=== PATIENT | female | born 1960 | race Caucasian/White ===

== ENCOUNTER 2024-01-17 04:08 | Inpatient (IN) | payer OTHER, SELFPAY ==
[2024-01-17] VITALS (38 sets, daily range): BP systolic 100–204; BP diastolic 48–154
[2024-01-17 01:28] LABS: % Basophils 0.6 % (0-2); % Eosinophils 2.6 % (0-6); % Immature Granulocytes 0.2 % (0-0.5); % Lymphocytes 28.7 % (20.5-51.1); % Monocytes 7.1 % (1.7-9.3); % Neutrophils 60.8 % (42.2-75.2); Absolute Eosinophils 0.2 10^3/uL (0-0.7); Absolute Lymphocytes 1.8 10^3/uL (1.2-3.4); Absolute Monocytes 0.4 10^3/uL (0.1-0.6); Absolute Neutrophils 3.7 10^3/uL (1.4-6.5); Hematocrit 35.2 % (37.0-47.0); Hemoglobin 12.2 g/dL (12.0-16.0); Mean Corp Hgb Conc. 34.7 g/dL (33.0-37.0); Mean Corpuscular Hgb 33.4 pg (27.0-31.0); Mean Corpuscular Volume 96.4 fL (81.0-99.0); Mean Platelet Volume 9.1 fL (7.4-10.4); Nucleated Red Blood Cells % 0 %; Platelet Count 205 10^3/uL (130-400); Red Blood Cell Count 3.65 10^6/uL (4.20-5.40); Red Cell Dist. Width 12.4 % (11.5-14.5); White Blood Cell Count 6.2 10^3/uL (4.8-10.8)
--- NOTE | 2024-01-17 01:33 | ED.GENMED ---
History of Present Illness
<STEFFANY Harvey - Last Filed: 01/17/24 03:45>
General
Chief Complaint: Breathing Problem
Source: patient and significant other (boyfriend )
Time Seen by Provider: 01/17/24 01:22
Nursing documentation reviewed up to this point in time: agreed with
Travel History
Have you traveled to any high risk areas for coronavirus over the past 14 days?: No
History of Present Illness
History of Present Illness:
A 63-year-old female with a past medical history of bicuspid aortic valve replacement, hemorrhagic CVA, hypertension, GERD, anxiety, asthma presents to the emergency department for shortness of breath for the last 2 hours. She states that the
shortness of breath started shortly after being intimate with her partner. She states that her chest feels tight. She admits to multiple episodes of SOB over the last 3 to 4 weeks, but that tonight it is much worse than normal. She states that
she is struggling to go to the bathroom and back. She also admits to mild jaw tenderness and left-sided chest pain that does not radiate. She denies any leg pain, abdominal pain, headache, dizziness.
Patient admits to a hemorrhagic stroke that occurred in 2007. She states that she followed the neurologist up until 2010. She states that she had a bovine bicuspid aortic valve replacement in 2020. She is a former smoker with a 7-pack-year
history. She denies any recent travel. She admits that due to financial reasons she has been unable to fill her daily hypertension and HLD medications
Past History
<Sarmad Capellan [facility] - Last Filed: 01/17/24 03:45>
Past History
ED Past Medical History: Arrthythmia, Asthma, GERD, HTN, IDDM, Valvular disease (congenital bicuspid) and Other (brain aneurysm )
Social History
Tobacco: Former smoker (7 pack year, quit 2011)
Family History
Family History: Other (brain aneurysm )
Review of Systems
<STEFFANY Harvey - Last Filed: 01/17/24 03:45>
Review of Systems
Constitutional: Reports weight gain
EENT: Reports no symptoms
Respiratory: Reports cough and trouble breathing
Cardiac: Reports chest pain and diaphoresis; Denies palpitations or syncope
ABD/GI: Reports no symptoms
: Reports no symptoms
Musculoskeletal: Reports no symptoms
Skin: Reports no symptoms
Neurological: Reports no symptoms
Endocrine: Reports no symptoms
Hematologic/Lymphatic: Reports no symptoms
Psychiatric: Reports no symptoms
Phy Exam
<STEFFANY Harvey - Last Filed: 01/17/24 03:45>
General Physical Exam
General Presentation: well appearing and mild distress
General age: appears stated age
General Skin: warm, dry, diaphoretic and feels hot
General Habitus: obese
General Mental: alert
General Hydration: appears well hydrated
Eye Exam
Eye Exam: PERRL and conjunctiva normal
Cardiovascular Exam
Cardiovascular Exam: no edema, no gallop, normal peripheral pulses, systolic murmur and tachycardia
Heart Sounds: other (bovine aortic valve replacement)
Pulmonary Exam
Pulmonary Exam: respiratory distress
Respiratory Effort: hyperventilation
Cough: non productive cough
Respirations: mild increase in effort
Breath Sounds: Crackles: left lower and right lower
Gastrointestinal Exam
Gastrointestinal Exam: normal bowel sounds
Neurological Exam
Neurological Exam: alert and oriented x3
Musculoskeletal Exam
Musculoskeletal Exam: full ROM
Skin Exam
Skin Exam: normal color, warm/dry and diaphoresis
Psychiatric Exam
Psychiatric Exam: anxious and other (tearful)
Scores
<STEFFANY Harvey - Last Filed: 01/17/24 03:45>
Heart Failure Risk
HF Risk Score: 4
Admission Status: HIGH RISK 26.1% Consider SNF treatment or admission to hospital
Heart Score for Chest Pain Patients
Heart Score for Chest Pain Patients: 6
Heart Score Risk: 20.3% MACE over next 6 weeks
<Paradise Quintero DO - Last Filed: 01/17/24 02:50>
Heart Failure Risk
Heart Failure Risk Score: Yes
History of Stroke or TIA: Yes
History of intubation for respiratory distress: No
Heart rate on ED arrival >/= 110: Yes
SaO2 <90% on arrival on room air: No
HR >/=110 during 3min walk test (or too ill to perform test): Yes
ECG has acute ischemic changes: No
Urea >/=12mmol/L (BUN 33.6mg/dL): No
Serum CO2>/=35mmol/L: No
Troponin I or T elevated to PA Level (0.4mg/dL): No
NT-proBNP >/=5,000ng/L (5,000pg/ml): Yes
HF Risk Score: 4
Admission Status: HIGH RISK 26.1% Consider SNF treatment or admission to hospital
Heart Score for Chest Pain Patients
STEMI patient?: No
History: Highly Suspicious
ECG: Nonspecific Repolarization
Age: >45 - <65 years
Risk Factors: 1 or 2 Risk Factors
Troponin: >1 - <3 x Normal Limit
Heart Score for Chest Pain Patients: 6
Heart Score Risk: 20.3% MACE over next 6 weeks
Course
<STEFFANY Harvey - Last Filed: 01/17/24 03:45>
Orders/Labs/Results
Orders:
Orders
01/17/24 01:10
Electrocardiogram (*1) Urgent
Reason for Study: Other
Other Reason for Exam: Respiratory Distress
Cardiac Monitoring- Treatment ONCE
EKG- Treatment ONCE
IV Insert/Care/Rem.- Treatment PRN
CR Chest - 2 Views Urgent
Comment:
Reason For Exam: respiratory distress
O2 Therapy [RESP] Urgent
Titrate/Wean O2 to maintain O2 sat greater than (%): 93
Special Instructions: TO MAINTAIN CONTINUOUS O2 SATS >/= 93%
Pulse Ox/cont/shift [RESP] Urgent
Quantity: 1
Special Instructions: continuous pulse ox
01/17/24 01:21
Complete Blood Count/With Diff Urgent
Comprehensive Metabolic Panel Urgent
NT-proBNP Urgent
Troponin I Urgent
01/17/24 02:33
Furosemide [Lasix] 60 mg IV NOW STA
Nitroglycerin Sublingual [Nitrostat (Sublingual)] 0.4 mg SL NOW STA
01/17/24 02:46
Heparin 4,000 units IV NOW STA
Nursing to Place Non Medication Order As Directed
Physician Order: PTT 6 hours after initial start of Heparin infusion
01/17/24 02:47
PTT Urgent
01/17/24 03:30
Heparin 49415 Units/250 ml 25,000 units in 250 ml IV PER PROTOCOL
Weight to be used for heparin protocol in kilograms (kg):: 72.5
Protocol:: Cardiac Tx/Acute Coronary
PTT Goal Range to be used:: PTT 73 to 111 seconds
Order type:: Initial
INITIAL Infusion Dose (UNITS/KG/hr) & then follow protocol:: 12 units/kg/hr
Infusion Dose in UNITS/hr & then follow protocol (UNITS/hr):: 850
INFUSION RATE in mL/hr & then follow protocol (mL/hr):: 8.5
PTT less than or equal to 64 seconds:: Increase rate by 200 units/hr (+ 2 mL/hr)
PTT 64.1 to 72.9 seconds:: Increase rate by 100 units/hr (+ 1 mL/hr)
PTT 73 to 111 seconds:: Target Range. No change in rate.
PTT 111.1 to 130.9 seconds:: Decrease rate by 100 units/hr (- 1 mL/hr)
PTT 131 to 199.9 seconds:: HOLD for 1 hr. Then decrease rate by 200 units/hr (- 2 mL/hr)
PTT greater than or equal to 200 seconds:: HOLD for 2 hrs & Notify Provider. Then decrease by 200 units/hr (-
2 mL/hr)
Lab follow-up:: Each change, PTT q6h until 2 consecutive are therapeutic. Then PTT
daily.
Abnormal Lab Results
01/17/24
01:21
RBC 3.65 L 10^6/uL
(4.20-5.40)
Hct 35.2 L %
(37.0-47.0)
MCH 33.4 H pg
(27.0-31.0)
Glucose 113 H mg/dl
(70-99)
Troponin I 0.097 H* ng/ml
01/17/24 01:21
01/17/24 01:21
Vital Signs
Initial and Last Documented VS:
Initial Vital Signs
Temp Pulse Resp BP Pulse Ox
97.7 F 115 24 186/106 96
01/17/24 00:47 01/17/24 00:47 01/17/24 00:47 01/17/24 00:47 01/17/24 00:47
Last Documented Vital Signs
Temp Pulse Resp BP Pulse Ox
97.7 F 105 20 147/99 96
01/17/24 00:47 01/17/24 02:30 01/17/24 02:30 01/17/24 02:43 01/17/24 02:30
<Paradise Quintero, DO - Last Filed: 01/17/24 02:50>
Orders/Labs/Results
Orders:
Orders
01/17/24 01:10
Electrocardiogram (*1) Urgent
Reason for Study: Other
Other Reason for Exam: Respiratory Distress
Cardiac Monitoring- Treatment ONCE
EKG- Treatment ONCE
IV Insert/Care/Rem.- Treatment PRN
CR Chest - 2 Views Urgent
Comment:
Reason For Exam: respiratory distress
O2 Therapy [RESP] Urgent
Titrate/Wean O2 to maintain O2 sat greater than (%): 93
Special Instructions: TO MAINTAIN CONTINUOUS O2 SATS >/= 93%
Pulse Ox/cont/shift [RESP] Urgent
Quantity: 1
Special Instructions: continuous pulse ox
01/17/24 01:21
Complete Blood Count/With Diff Urgent
Comprehensive Metabolic Panel Urgent
NT-proBNP Urgent
Troponin I Urgent
01/17/24 02:33
Furosemide [Lasix] 60 mg IV NOW STA
Nitroglycerin Sublingual [Nitrostat (Sublingual)] 0.4 mg SL NOW STA
01/17/24 02:46
Heparin 4,000 units IV NOW STA
Nursing to Place Non Medication Order As Directed
Physician Order: PTT 6 hours after initial start of Heparin infusion
01/17/24 02:47
PTT Urgent
01/17/24 03:30
Heparin 43049 Units/250 ml 25,000 units in 250 ml IV PER PROTOCOL
Weight to be used for heparin protocol in kilograms (kg):: 72.5
Protocol:: Cardiac Tx/Acute Coronary
PTT Goal Range to be used:: PTT 73 to 111 seconds
Order type:: Initial
INITIAL Infusion Dose (UNITS/KG/hr) & then follow protocol:: 12 units/kg/hr
Infusion Dose in UNITS/hr & then follow protocol (UNITS/hr):: 850
INFUSION RATE in mL/hr & then follow protocol (mL/hr):: 8.5
PTT less than or equal to 64 seconds:: Increase rate by 200 units/hr (+ 2 mL/hr)
PTT 64.1 to 72.9 seconds:: Increase rate by 100 units/hr (+ 1 mL/hr)
PTT 73 to 111 seconds:: Target Range. No change in rate.
PTT 111.1 to 130.9 seconds:: Decrease rate by 100 units/hr (- 1 mL/hr)
PTT 131 to 199.9 seconds:: HOLD for 1 hr. Then decrease rate by 200 units/hr (- 2 mL/hr)
PTT greater than or equal to 200 seconds:: HOLD for 2 hrs & Notify Provider. Then decrease by 200 units/hr (-
2 mL/hr)
Lab follow-up:: Each change, PTT q6h until 2 consecutive are therapeutic. Then PTT
daily.
Abnormal Lab Results
01/17/24
01:21
RBC 3.65 L 10^6/uL
(4.20-5.40)
Hct 35.2 L %
(37.0-47.0)
MCH 33.4 H pg
(27.0-31.0)
Glucose 113 H mg/dl
(70-99)
Troponin I 0.097 H* ng/ml
01/17/24 01:21
01/17/24 01:21
Vital Signs
Initial and Last Documented VS:
Initial Vital Signs
Temp Pulse Resp BP Pulse Ox
97.7 F 115 24 186/106 96
01/17/24 00:47 01/17/24 00:47 01/17/24 00:47 01/17/24 00:47 01/17/24 00:47
Last Documented Vital Signs
Temp Pulse Resp BP Pulse Ox
97.7 F 105 20 147/99 96
01/17/24 00:47 01/17/24 02:30 01/17/24 02:30 01/17/24 02:43 01/17/24 02:30
<STEFFANY Harvey - Last Filed: 01/17/24 03:45>
MDM/Problems Addressed
Differential Diagnosis Includes:
Acute coronary syndrome, Heart failure exacerbation, pulmonary embolism
<Paradise Quintero DO - Last Filed: 01/17/24 02:50>
*Radiology
Radiology exam reviewed: preliminary read by ED provider (Chest x-ray shows mild cardiomegaly, increased interstitial markings bilaterally consistent with CHF)
*Pulse Oximetry
Patient hypoxic: no
*EKG
Interpreted by ED Provider?: Yes
Interpretation: abnormal
Comparison EKG: no comparison EKG present
Rate: tachycardiac
Rhythm: sinus
[place]: normal axis
Interval: normal QT interval
QRS Pattern: left bundle branch block and left vent hypertrophy
Ischemia: non-specific ST changes
*Ditch Repairer Interpretation
Rate: tachycardiac
Interpretation: abnormal
Rhythm: sinus
*Critical Care Note
Total Time (30-74mins, 75-104mins- exclusive of procedures): Not Applicable
ED Attending Note
<STEFFANY Harvey - Last Filed: 01/17/24 03:45>
-
Portions of this chart may have been created with voice recognition software.� Occasional wrong word or��sound alike� substitutions may have occurred due to the inherent limitations of voice recognition software.
<Paradise Quintero DO - Last Filed: 01/17/24 02:50>
ED Attending Note
Patient seen and examined by attending physician: Yes
I performed the substantive portion of visit, reviewed & personally made and approve the management plan that is documented in note by myself or SHITAL.: Yes
ED Attending Note:
This is a 63-year-old woman with history of bicuspid aortic valve associated with ascending aortic aneurysm undergoing repair of both with bioprosthetic aortic valve replacement 2020, performed at [facility]. She has history of
hyperlipidemia, hypertension, anxiety. She also reports history of AAA that is followed annually, stable and unchanged.
She complains of at least 3-week history of progressive dyspnea on exertion, progressive chest pain on exertion. Chest pain and shortness of breath were much worse tonight, unrelieved with albuterol inhaler that is her significant others. She has
had intermittent paroxysmal nocturnal dyspnea over the past week or 2 ago. She has had no leg pain or swelling but has had some weight gain over the past month or 2.
No history of similar episodes in the past. No recent travel.
Remote history of smoking, quit 2011.
Remote history of hemorrhagic CVA over 15 years ago. No residual deficits. Hemorrhagic CVA related to aneurysm. Reportedly not requiring surgical intervention.
She has been under tremendous stress, recently lost her job, lost her apartment and is currently living in a hotel with her significant other.
Inadvertently ran out of of omeprazole/HCTZ as well as ran out of metoprolol approximately 2 weeks ago. Prescriptions are at her pharmacy ready for pickup.
She does follow with airplane flight attendant in [facility] but admits to missing her last appointment. Last visit approximately 1 year ago.
GENERAL: 63-year-old woman appears her stated age, awake and alert, mildly anxious, intermittently tearful but easily communicative. Boyfriend is accompanying.
EYE: pupils equal and reactive. anicteric
NECK: Supple, nontender, no meningismus, no significant adenopathy. Mild JVD.
ENT: oral mucosa is moist.
CARDIAC: Regular rhythm, mildly tachycardic. Soft S3 gallop.
LUNGS: Mild resting tachypnea, bibasilar rales approximate one third of the way up.
ABDOMEN: Soft, nondistended, without focal tenderness, no r/g, no cvat. normoactive BS.
NEUROLOGICAL: Alert and oriented x3, no focal neuro deficits.
SKIN: Warm and dry, normal color, skin intact. No rash.
MUSCULOSKELETAL: No C/C/E. peripheral pulses are full and equal b/l. No palpable tenderness.
PSYCH: Mildly anxious. Cooperative.
History and exam concerning for ACS, CHF, pleural effusion, valvular heart disease, less likely undiagnosed or newly diagnosed COPD/asthma.
Chest x-ray shows moderate interstitial edema concerning for CHF/pulmonary edema.
EKG shows sinus tachycardia at 105, left bundle branch block, LVH, Q waves anterolaterally. No old EKG to compare.
Labs are remarkable for borderline elevated troponin 0.097. BNP is elevated at 5500.
Significant hypertension noted initially, has improved to 140/90. Will trial sublingual nitroglycerin for preload and afterload reduction and give an IV dose of Lasix.
Will initiate IV heparin for potential ACS/unstable angina.
Will admit to hospitalist service.
Discharge Plan
Departure
Patient Disposition: Admit
Date of Disposition: 01/17/24
Time of Disposition: 02:45
Admit to: IVU
Admit to doctor: Deangelo
Presentation/result/management discussed w/ accepting MD/DO: Hospitalist
Condition: Serious
Discharge Problem:
Acute CHF, ACS (acute coronary syndrome)
Prescriptions:
No Action
atorvastatin 20 mg Tablet
20 mg PO DAILY
omeprazole 20 mg Capsule,Delayed Release(Dr/Ec)
20 mg PO DAILY
aspirin [Baby Aspirin] 81 mg Tablet,Chewable
81 mg PO DAILY
montelukast [Singulair] 10 mg Tablet
10 mg PO DAILY
metoprolol tartrate 25 mg Tablet
25 mg PO BID
duloxetine
1 PO DAILY
Interventions
Interventions:
*Risk Screen - Suicide Last Done: 01/17/24 00:47
*General Assessment Last Done: 01/17/24 02:12
*Neglect/Abuse Screening Last Done: 01/17/24 00:47
*ED COVID-19 Vaccine History Last Done: 01/17/24 02:12
ED- Cardiac Assessment Last Done: 01/17/24 02:12
ED- Pulmonary Assessment Last Done: 01/17/24 02:13
Discharge Date and Time
Print Language: CAMBODIAN
[2024-01-17 01:45] LABS: ALT (SGPT) 26 U/L (0-35); AST (SGOT) 30 U/L (14-36); Albumin 4.2 g/dl (3.5-5.0); Alkaline Phosphatase 101 U/L (38-126); Blood Urea Nitrogen 15 mg/dl (7-17); Calcium 9.6 mg/dl (8.4-10.2); Carbon Dioxide 28 mmol/L (22-30); Chloride 104 mmol/L (98-107); Glucose 113 mg/dl (70-99); Sodium 145 mmol/L (135-145); Total Bilirubin 0.5 mg/dl (0.2-1.3); Total Protein 6.6 g/dl (6.3-8.2); eGFR > 60.00
[2024-01-17 01:56] LABS: NT-proBNP 5540 pg/ml; Troponin I 0.097 ng/ml
[2024-01-17] MEDS: LASIX 60 MG IV (02:37)
[2024-01-17] MEDS: NITROSTAT (SUBLINGUAL) 0.4 MG SL (02:38)
[2024-01-17 03:24] LABS: APTT 26.9 Sec (23.4-35.0)
[2024-01-17] MEDS: HEPARIN 4000 UNITS IV (03:29)
[2024-01-17] MEDS: HEPARIN 25000 UNITS/250 ML IV ×2 (03:30→15:46)
--- NOTE | 2024-01-17 04:00 | HPS.HSE ---
Family Physician
-
Family Physician: Consuelo Cole
Chief Complaint
-
SOB / Chest Pain
History of Present Illness
Patient is a 63y F with PMH significant for aortic stenosis s/p AVR, hemorrhagic CVA and generalized anxiety who presents to ED complaining of SOB and chest discomfort. Patient states that she has noted shortness of breath with exertion or with
lying flat over the past 3-4 weeks. Her symptoms have gradually increased in frequency and severity in that time. Patient has also developed tingling / discomfort in the LUE, L jaw and L chest that also occurs with exertion - this has occurred
over only the past few days. Patient denies any prior history of similar symptoms.
Patient is a fixed route bus operator and has a complete physical annually including stress test. She states that her last stress test was unremarkable and calcium score was '0'. She is followed by [facility] (Dr. Parsons / formerly Dr. Jacobs).
Her EKG in the ED shows a LBBB which patient states is known / chronic (no prior tracings here).
At the time of my examination, patient complained of some SOB but has no chest pain, arm pain, etc.
Medical History
Past Medical History
Past Medical History: Reports Other
Additional Past Medical History:
Aortic Stenosis / Dilated Aortic Arch / Bicuspid Aortic Valve
Hemorrhagic CVA (2007 - ? substance abuse related)
Hypertension
Generalized Anxiety
GERD
Nephrolithiasis
Past Surgical History: Reports Other
Additional Past Surgical History:
Bovine AVR / Arch Repair / AtriClip
T&A
Lithotripsies
Right Knee Arthroscopy
Social History
Tobacco: Former Smoker (Quit smoking in 2011. Off-and-on prior to that. Approx 20 pack years total use.)
Alcohol: Occasional
Drug: Former User (Prior h/o substance abuse. Primarily cocaine. No IVDA.)
Personal: Partner
Family History
Family History: Not pertinent
Allergies / Home Medications
Allergies reflects when Allergies were last updated in [facility].
Home Medications with original date entered in [facility]
Allergy/Medication List:
Allergies
Allergy/AdvReac Type Severity Reaction Status Date / Time
No Known Allergies Allergy Unverified 01/17/24 00:47
Home Medications
aspirin 81 mg chewable tablet 81 mg PO DAILY 01/17/24
atorvastatin 20 mg tablet 20 mg PO DAILY 01/17/24
duloxetine 1 PO DAILY 01/17/24
metoprolol tartrate 25 mg tablet 25 mg PO BID 01/17/24
montelukast 10 mg tablet (Singulair) 10 mg PO DAILY 01/17/24
olmesartan 20 mg-hydrochlorothiazide 12.5 mg tablet (Benicar HCT) 1 tab PO DAILY 01/17/24
omeprazole 20 mg capsule,delayed release 20 mg PO DAILY 01/17/24
Review of Systems
-
History Source: Patient
A 12 point ROS was completed and negative except as noted: Yes
Constitutional: Reports Fatigue; Denies Fever or Chills
EENT: Denies Sore Throat
Respiratory: Reports Cough, Trouble Breathing and Other (AGUERO / orthopnea); Denies Hemoptysis
Cardiac: Reports Chest Pain; Denies Diaphoresis, Palpitations or Syncope
Abdomen/GI: Denies Abdominal Pain, Nausea, Vomiting or Diarrhea
: Denies Dysuria, Frequency or Flank Pain
Neurological: Denies Dizzy or Headache
Psych: Reports Anxiety; Denies Depression
Physical Exam
Vital Signs
Vital Signs
Temp Pulse Resp BP Pulse Ox
97.7 F 105 20 147/99 96
01/17/24 00:47 01/17/24 02:30 01/17/24 02:30 01/17/24 02:43 01/17/24 02:30
Physical Exam
General: Other (63y F in no acute distress.)
HEENT: Moist mucous membranes, PERRLA and Other (No JVD.)
Respiratory: Other (Few bibasilar rales - otherwise clear.)
Cardiac: S1/S2 and Regular Rhythm; No Murmur
GI: Soft, Non Tender, Non Distended and Normal Bowel Sounds
Musculoskeletal: No Clubbing and No Edema
Neuro: AO x 3
Laboratory Results
-
01/17/24 01:21
01/17/24 01:21
Laboratory Results
APTT 26.9 Sec (23.4-35.0) 01/17/24 02:47
Total Bilirubin 0.5 mg/dl (0.2-1.3) 01/17/24 01:21
AST 30 U/L (14-36) 01/17/24 01:21
ALT 26 U/L (0-35) 01/17/24 01:21
Alkaline Phosphatase 101 U/L (38-126) 01/17/24 01:21
Troponin I 0.097 ng/ml H* 01/17/24 01:21
Impression/Plan
-
A/P: Patient is a 63y F with PMH significant for aortic stenosis s/p AVR who presents to ED complaining of SOB / AGUERO and chest pain.
ACS
- Admit for further evaluation and treatment.
- Patient with excellent story for angina including L jaw, arm, chest discomfort that is present with exertion.
- Multiple risk factors - despite reported normal stress test / calcium scores in the past.
- EKG shows LBBB which patient states is chronic / known.
- Initial troponin is 0.097 - continue to follow to peak.
- IV heparin gtt, ASA daily. Continue usual beta-estefany, statin, etc.
- Cardiology consult for additional recommendations +/- ischemic evaluation.
- Follow for any new / worsening symptoms or complaints.
Acute HF - Unknown Type
- Patient with progressive dyspnea on exertion, orthopnea and CXR showing pulmonary edema on arrival.
- Few rales on exam and no LE edema, etc.
- BNP elevated with no prior to compare.
- Known valvular heart disease / .
- Continue IV Lasix BID for now.
- Follow I/Os, daily weights, etc.
- IV NTG for BP, ACS and CHF for now.
- Cardiology evaluation as noted above.
- Echo +/- ischemic evaluation as noted above.
Aortic Stenosis s/p AVR
- History of arch repair, bovine AVR and Atriclip (by CXR).
- Follows with Dr. Jacobs / [place] and patient states no issues noted with serial echo, etc.
- Update Echo as noted above with new / progressive symptoms.
History of Hemorrhagic CVA
- Patient reliably describes CVA that occurred following cocaine use / abuse in 2007.
- No intervention, coil / clip / etc done at that time.
- No new issues in the interim.
- Some occasional speech difficulty / RLE weakness with extreme fatigue but no other residual.
Generalized Anxiety
- Resume duloxetine once dose is confirmed.
DVT Prophylaxis: On IV Heparin at present.
Code Status: Full
[2024-01-17 06:47] LABS: Blood Urea Nitrogen 16 mg/dl (7-17); Calcium 9.5 mg/dl (8.4-10.2); Carbon Dioxide 26 mmol/L (22-30); Chloride 102 mmol/L (98-107); Glucose 115 mg/dl (70-99); Potassium 3.3 mmol/L (3.5-5.1); Sodium 144 mmol/L (135-145); Total Cholesterol 247 mg/dl (50-199); Triglyceride 79 mg/dl (10-149); Very Low Density Lipoprotein 15 mg/dl (0-30); eGFR > 60.00
[2024-01-17 06:57] LABS: HDL Cholesterol 128 mg/dl; LDL Cholesterol, Calculated 104 mg/dl
[2024-01-17 07:04] LABS: Troponin I 0.126 ng/ml
[2024-01-17 07:17] LABS: TSH Reflex To Free T4 2.38 uIU/ml (0.47-4.68)
[2024-01-17] MEDS: NITROGLYCERIN PREMIX 250 IV (07:25)
[2024-01-17] MEDS: PROTONIX 40 MG PO (07:48)
[2024-01-17] MEDS: LOPRESSOR 25 MG PO (07:48)
[2024-01-17] MEDS: LIPITOR 40 MG PO (07:48)
[2024-01-17] MEDS: SINGULAIR 10 MG PO (07:48)
[2024-01-17] MEDS: LOW STRENGTH ASPIRIN 81 MG PO (07:48)
--- NOTE | 2024-01-17 08:30 | PTCARENOTE ---
Rec'd pt at handoff. Walking round completed at 0715. Heparin gtt infusing at 850 units/hr and Nitro gtt infusing at 5mcg/min per order. Tele- SR w/ PACs. HR 90-100s. Homero Mcclellan GLOBAL CLIMATE CHANGE RESEARCHER in to assess pt. Reviewed plan of care w/ pt. Verbalizes
understanding. Aware of NPO status for cath. Currently in bed; call velázquez w/in reach. Pt significant other at bedside w/ pt.
--- NOTE | 2024-01-17 08:34 | CON.CAR ---
Consultation
Consultation Request
Date/Time Consultation Requested: 01/17/2024 05:40
Date/Time Consultation Performed: 01/17/2024 08:35
Requesting Provider: Dr. Bright
Performing Provider: KATHARINE Cabrera for Dr. Thomas
Reason for Consultation: Chest pain
Medical History
-
Chief Complaint: Chest pain
History of Present Illness:
Florinda Canales is a 63-year-old female (known to Dr. Parsons at [facility], formerly known to Dr. Jacobs), with hemorrhagic CVA (2007), LBBB, bicuspid aortic valve status post aortic valve replacement (2020), hypertension, dyslipidemia, and anxiety who
presented to the emergency department with a chief complaint of shortness of breath. Her shortness of breath episode lasted approximately 2 hours. She endorses having chest discomfort with her shortness of breath. She reports her jaw felt
'funny'. Her left arm felt weak. She reports significant fatigue over the past several weeks. At the time of this consultation she was chest pain-free.
Past Medical History
Past Medical History: Asthma, CVA (Hemorrhagic [2007]), HTN, Hypercholesterolemia, Valvular Disease (Bicuspid aortic valve s/p bio AVR) and Other (LBBB)
Past Surgical History: Cardiac (BioAVR [2020]) and Orthopedic
Social History
Tobacco: Former Smoker
Alcohol: None
Drug: Former User
Personal: Partner (Boyfriend)
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
Allergies / Home Medications
Allergy/AdvReac Type Severity Reaction Status Date / Time
No Known Allergies Allergy Unverified 01/17/24 04:26
�Medication �Instructions �Recorded �Confirmed �Type
aspirin 81 mg chewable tablet 81 mg PO DAILY 01/17/24 01/17/24 History
atorvastatin 20 mg tablet 20 mg PO DAILY 01/17/24 01/17/24 History
duloxetine 1 PO DAILY 01/17/24 History
metoprolol tartrate 25 mg tablet 25 mg PO BID 01/17/24 01/17/24 History
montelukast 10 mg tablet 10 mg PO DAILY 01/17/24 01/17/24 History
(Singulair)
olmesartan 20 1 tab PO DAILY 01/17/24 01/17/24 History
mg-hydrochlorothiazide 12.5 mg
tablet (Benicar HCT)
omeprazole 20 mg capsule,delayed 20 mg PO DAILY 01/17/24 01/17/24 History
release
Review of Systems
-
History Source: Patient
All other systems: Negative unless noted
Constitutional: Fatigue
EENT: No Symptoms
Respiratory: No Symptoms
Cardiac: No Symptoms
Abdomen/GI: No Symptoms
: No Symptoms
Musculoskeletal: No Symptoms
Skin: No Symptoms
Neurological: No Symptoms
Endocrine: No Symptoms
Hematologic/Lymphatic: No Symptoms
Physical Exam
Vital Signs
Temp Pulse Resp BP Pulse Ox
98.4 F 116 20 178/108 97
01/17/24 05:47 01/17/24 07:15 01/17/24 05:47 01/17/24 05:50 01/17/24 05:47
Lab Results
01/17/24 01:21
01/17/24 05:57
Troponin I 0.126 ng/ml H* D 01/17/24 05:57
Pum-G-Zjyqcxcwgup Pept 5540 pg/ml 01/17/24 01:21
Physical Exam
General: Well Developed, Well Nourished, No Apparent Distress and Comfortable
HEENT: Normocephalic, Anicteric and Moist Mucous Membranes
Respiratory: Clear and Non Labored Respirations
Cardiac: S1/S2 and Irregular Rhythm
Breast: Deferred by me
GI: Soft, Non Tender, Non Distended and Normal Bowel Sounds
Rectal: Deferred by Provider
Genito-urinary: No Costovertebral Tender
Musculoskeletal: No Clubbing, No Cyanosis and No Edema
Skin: Warm and Dry
Neuro: AO x 3
Hematologic/Lymphatic: No Lymphadenopathy
Psych: Calm
Impression / Plan
-
BACKGROUND: 63F with hemorrhagic CVA (2007), LBBB, bicuspid aortic valve status post aortic valve replacement (2020), hypertension, dyslipidemia, and anxiety who presented to the emergency department with a chief complaint of shortness of breath.
Rn Critical Care: Dr. Suggs (formerly Dr. Jacbos)
PLAN:
ACS
-She presented with shortness of breath and discomfort in her left anterior chest, jaw, and left arm
-Currently chest pain-free
-Trend troponin to peak, currently 0.126
-EKG with left bundle branch block, she reports this is a chronic finding
-Echocardiogram
-Cardiac catheterization today
Acute heart failure exacerbation, new diagnosis, presumed HFpEF
-CXR with pulmonary edema, formal reading pending
-She presented with AGUERO, orthopnea, and a proBNP of 5540
-Improvement in shortness of breath with intravenous furosemide overnight
-Update echocardiogram
Bicuspid aortic valve s/p biologic aortic valve replacement (2020) with aortic arch repair
-She reports her serial echocardiograms have been normal, update
Hypertension
-She reports running out of her medications several weeks ago
-Continue NTG gtt for goal SBP < 160mmHg
-Medical therapy TBD after LHC and TTE
Dyslipidemia
-LDL 104 off of her atorvastatin
Prior hemorrhagic CVA (2007)
-Event followed cocaine use (now with cessation), no residual deficit
-She no longer follows with neurology
LBBB, chronic
Asthma, chronic, stable, no acute wheeze
GERD, on PPI
SUBJECTIVE: See ROS
Data Reviewed
-
EKG: Report Reviewed by me (Sinus tachycardia, short NC, LBBB, rate 107)
Labs: Labs Reviewed by me
--- NOTE | 2024-01-17 09:30 | W.PN.ANESINT ---
Anesthesia Intubation Note
- Intubation Note
Intubation Note:
Diagnosis: cardiac arrest
Blade: Glidescope #4 MAC
Tube Size: #8.0 oral HI LO ett
Depth: 22 cm
Side Taped:right
Drugs Used:none
Grade View:I
EtCO2 Present:yes
Atraumatic:yes
Attempts: 1
Insertion Start and Stop Time:see code sheet 0918
SaO2 Pre:0
SaO2 Post:99
Glidescope Used:yes
Other Airway Adjustments:
Pre-Oxygenated:yes
Portable Chest X-Ray:ordered
RSI:no
Suctioned:yes
Bilateral Breath Sounds Confirmed: yes
Vent Settings:
Settings per __x_Attending Physician
--- NOTE | 2024-01-17 09:40 | W.PN.UPDATE ---
Update Note
Progress Note Update
Patient was seen by me this morning in addition to remainder of staff for code 9. ROSC was obtained after several amps of epinephrine + bicarb. Post ROSC echo showed reduced LVEF with no pericardial effusion and seemingly good RV contractility.
End-tidal CO2 then started to down trend and CPR was resumed and patient was cannulated for VA ECMO. Patient was cannulated by CT surgery. I was available at bedside the entire time to also assist as needed. At the end of this event, patient was
on VA ECMO with flow at around 3.7 L/min. Pt then brought to laborer mine with plans to TRX to CVICU for further care while awaiting transfer to [place].
[2024-01-17 10:24] LABS: Hemoglobin 9.7 g/dL (12.0-16.0); Mean Corp Hgb Conc. 33.4 g/dL (33.0-37.0); Mean Corpuscular Hgb 33.6 pg (27.0-31.0); Mean Corpuscular Volume 100.3 fL (81.0-99.0); Mean Platelet Volume 9.6 fL (7.4-10.4); Platelet Count 109 10^3/uL (130-400); Red Blood Cell Count 2.89 10^6/uL (4.20-5.40); Red Cell Dist. Width 12.6 % (11.5-14.5); White Blood Cell Count 5.9 10^3/uL (4.8-10.8)
--- NOTE | 2024-01-17 10:28 | W.PN.HOSP.TC ---
Today's Communication/Plan
-
Cath and Transfer to [facility]
Assessment / Plan
Assessment / Plan
63-year-old female presented to the hospital with shortness of breath for the past 2 days prior to arrival. ( Discussion with significant other.). She had fatigue over the past few weeks. Reportedly normal cardiac cath
She also had reportedly jaw pain and left arm discomfort. Patient was admitted overnight and started on heparin drip. Plan was to do cardiac catheterization. Patient reportedly felt better with Lasix.
She has a history of bicuspid aortic valve status post biologic arctic valve replacement in 2020 with aortic arch repair, hypertension, dyslipidemia, history of hemorrhagic CVA in 2007 (after cocaine use which she has stopped since then.), Chronic
left bundle branch block, asthma, GERD.
(Reportedly normal cardiac cath in 2020 prior to aortic valve surgery-per cardiology notes.)
I responded to code 9 and went to see the patient.
Cardiology had already started CPR for PEA arrest.
Patient received several rounds of epinephrine along with CPR, she was shocked also shocked twice with 300 J for ventricular fibrillation.
She was started on epinephrine drip
Patient also received IV calcium, IV bicarb, IV magnesium
ROSC was attained
Patient was cannulated for ECMO in the room
Then sent to cardiac catheterization lab.
Cardiology also initiated transfer to [facility] (appreciated)
Was accepted by Dr. Susanna Taylor
Significant other Byron was on the floor and updated. He signed transfer form.
Dr. Thomas also updated patient's son Mr. Driscoll on the phone re the events . He was also agreeable for the transfer. (Per significant other son is kind of estranged from the patient and also now hospitalized in the [facility] in [place].)
Anticipated Discharge: > 48 hours
Subjective/Interval History
-
Date of Service: January 17, 2024
Objective Data
-
Labs:
Laboratory Results
01/17/24 01/17/24 01/17/24
01:21 02:47 05:57
WBC 6.2
Hgb 12.2
Hct 35.2 L
Plt Count 205
PT
INR
APTT 26.9
HCO3
Sodium 145 144
Potassium 4.0 3.3 L
Chloride 104 102
Carbon Dioxide 28 26
BUN 15 16
Creatinine 0.8 0.8
Glucose 113 H 115 H
Calcium 9.6 9.5
Total Bilirubin 0.5
AST 30
ALT 26
Alkaline Phosphatase 101
01/17/24 01/17/24 01/17/24
09:30 09:58 10:15
WBC 5.9
Hgb 9.7 L D
Hct 29.0 L
Plt Count 109 L D
PT Pending
INR Pending
APTT Pending
HCO3 Pending
Sodium Pending
Potassium Pending
Chloride Pending
Carbon Dioxide Pending
BUN Pending
Creatinine Pending
Glucose Pending
Calcium Pending
Total Bilirubin
AST
ALT
Alkaline Phosphatase
01/17/24
10:20
WBC
Hgb
Hct
Plt Count
PT
INR
APTT
HCO3 Pending
Sodium
Potassium
Chloride
Carbon Dioxide
BUN
Creatinine
Glucose
Calcium
Total Bilirubin
AST
ALT
Alkaline Phosphatase
Vital Signs:
Vital Signs
Temp Pulse Resp BP Pulse Ox
98.4 F 116 20 178/108 97
01/17/24 05:47 01/17/24 07:15 01/17/24 05:47 01/17/24 05:50 01/17/24 05:47
I&O
01/16/24 01/17/2424
06:59 06:59 06:59
Output Total 561.89 / 561.89
Balance -561.89 / -561.89
[2024-01-17 10:41] LABS: Glycohemoglobin (HgbA1c) 5.4 % (4.0-5.6)
[2024-01-17 10:43] LABS: B.E. - POC -5.8 mmol/L; Glucose - POC 387 mg/dl (70-99); HCO3 - POC 19 mmol/L (21-29); Hematocrit - POC 31 % PCV (37-47); Hemodilution- POC Yes; Hemoglobin Calculated - POC 10.5; Ionized Calcium - POC 1.46 mmol/L (1.12-1.27); Lactate - POC 12.58 mmol/L (0.36-0.75); O2 Saturation %Calculated-POC 82.9 % (92-96); PCO2 - POC 36 mmHg (35-45); PO2 - POC 50 mmHg (80-100); POC Comment ECMO SAMPLE; Potassium - POC 3.6 mmol/L (3.6-5.0); Sodium - POC 143 mmol/L (135-145); pH - POC 7.34 (7.35-7.45)
--- NOTE | 2024-01-17 10:49 | W.PN.UPDATE ---
Update Note
Progress Note Update
This is an update note following a cardiac arrest. I did not interview the patient but participated in care during the arrest. Please see medical consultation note from 01/17/2024 at 8:34 for full consult in conjunction with KATHARINE Cabrera.
Florinda Canales is a 63-year-old female with hemorrhagic CVA in 2007, left bundle branch block, bicuspid aortic valve status post aortic valve replacement (2020), hypertension, dyslipidemia, and anxiety who presented to the emergency department with
shortness of breath. She had been feeling shortness of breath for approximately 2 hours before presenting to the ER yesterday evening. She also had some chest discomfort and a 'funny' feeling in her left jaw. She had significant fatigue over the
past several weeks. By the time KATHARINE saw her at 8:34 AM, her symptoms had completely resolved and she was on a nitroglycerin and heparin drip. She had received IV furosemide overnight and reported an improvement in her shortness of breath. Her
troponin was 0.126 and continuing to be trended. Her ECG showed sinus tachycardia with a left bundle branch block that was old per the patient. Of note she also had a reportedly normal left heart catheterization in 2020 prior to her valve surgery
but we do not have these records.
At 9:10 AM, her RN noted that she was off the monitor and went into check on her. At that point she found her unresponsive. CPR was started immediately. See code sheet for full medication administration and details. In summary, she received
several rounds of epinephrine. She was shocked twice at 300 J for ventricular fibrillation. The remainder of the rhythm checks revealed PEA. She was ultimately started on an epinephrine drip at 10. She was given calcium, bicarbonate, and
magnesium. ROSC was achieved at some point but then lost again and the decision was made to place patient on ECMO. She was placed on the ECMO circuit in her room. Plan is now for left and right heart catheterization. We have also initiated
transfer to [facility]. Accepting physician is Dr. Elmer Taylor.
Patient's boyfriend Byron is here at the bedside. She also has a son, Durga Driscoll, who is the POA and whom I updated by phone. He is currently hospitalized at a [facility] in [place]. His phone number is [phone].
--- NOTE | 2024-01-17 10:51 | PTCARENOTE ---
Rec'd pt at handoff. Walking round completed. Heparin gtt infusing at 850 units/hr and Nitro gtt infusing at 5mcg/min per order. Tele- SR w/ PACs. HR 90-100s. Homero Mcclellan MUCKER OPERATOR in to assess pt. Reviewed plan of care w/ pt. Verbalizes understanding.
Aware of NPO status for cath.
At 0840 this RN noticed pt no longer monitored at central station. This RN went to pt room to assess and noticed pt unresponsive. Compressions started. Code 9 called. See Code 9 documentation.
[2024-01-17 10:55] LABS: Blood Urea Nitrogen 12 mg/dl (7-17); Calcium 12.2 mg/dl (8.4-10.2); Carbon Dioxide 17 mmol/L (22-30); Chloride 101 mmol/L (98-107); Glucose 335 mg/dl (70-99); Sodium 143 mmol/L (135-145); eGFR > 60.00
[2024-01-17 11:00] LABS: B.E. - POC -5.5 mmol/L; Glucose - POC 315 mg/dl (70-99); HCO3 - POC 18 mmol/L (21-29); Hematocrit - POC 29 % PCV (37-47); Hemodilution- POC Yes; Hemoglobin Calculated - POC 9.9; Ionized Calcium - POC 1.14 mmol/L (1.12-1.27); Lactate - POC 8.82 mmol/L (0.36-0.75); PCO2 - POC 29 mmHg (35-45); PO2 - POC 463 mmHg (80-100); POC Comment ECMO; Potassium - POC 3.1 mmol/L (3.6-5.0); Sodium - POC 146 mmol/L (135-145); pH - POC 7.41 (7.35-7.45)
[2024-01-17 11:34] LABS: % Basophils 0.3 % (0-2); % Immature Granulocytes 4.2 % (0-0.5); % Lymphocytes 59.1 % (20.5-51.1); % Monocytes 3.2 % (1.7-9.3); % Neutrophils 32.2 % (42.2-75.2); Absolute Eosinophils 0.1 10^3/uL (0-0.7); Absolute Immature Granulocytes 0.3 10^3/uL (0-0.05); Absolute Lymphocytes 3.5 10^3/uL (1.2-3.4); Absolute Monocytes 0.2 10^3/uL (0.1-0.6); Absolute Neutrophils 1.9 10^3/uL (1.4-6.5); Nucleated Red Blood Cells % 0.7 %
--- NOTE | 2024-01-17 12:00 | PTCARENOTE ---
At 0910 this RN noticed pt no longer monitored at central station. This RN went to pt room to assess and noticed pt unresponsive. Compressions started. Code 9 called. See Code 9 documentation.
[2024-01-17 12:09] LABS: B.E. - POC -4.9 mmol/L; Glucose - POC 285 mg/dl (70-99); HCO3 - POC 20 mmol/L (21-29); Hematocrit - POC 28 % PCV (37-47); Hemodilution- POC Yes; Hemoglobin Calculated - POC 9.6; Ionized Calcium - POC 1.21 mmol/L (1.12-1.27); Lactate - POC 4.75 mmol/L (0.36-0.75); PCO2 - POC 36 mmHg (35-45); PO2 - POC 410 mmHg (80-100); POC Comment ECMO; Potassium - POC 3.2 mmol/L (3.6-5.0); Sodium - POC 146 mmol/L (135-145); pH - POC 7.35 (7.35-7.45)
--- NOTE | 2024-01-17 12:15 | CON.INTV ---
Consultation
Consultation Request
Date/Time Consultation Requested: 01/17/20241156
Date/Time Consultation Performed: 01/17/2024 - 1204
Requesting Provider: KATHARINE Schofield
Performing Provider: Dennis Chiu MD
Reason for Consultation: post-cardiac arrest/NSTEMI/ECMO
Medical History
-
Chief Complaint: Chest pain/SOB
History of Present Illness:
63-year-old female former tobacco smoker (14-sffv-fkjv, quit 2011) with a past medical history of aortic stenosis with history of bicuspid aortic valve s/p tissue AVR, history of hemorrhagic CVA, JOSUÉ + hypertension who presented with SOB + chest
pain. She initially thought that it was her asthma and she took her inhaler multiple times with no improvement. She is been short of breath with activity for the last 3 to 4 weeks. She also developed tingling in her left arm, left jaw and left
chest over the last several days. Initial EKG showed sinus tachycardia with left bundle branch block with negative Sgarbossa criteria. Initial vitals showed she was afebrile to 97.7 �F, tachycardic to 115, breathing at 24 breaths/min, BP 186/106
and saturating 96%. Initial labs showed troponin 0.097, proBNP 5540, Hb 12.2 and glucose 113. Initial CXR showed mild�moderate pulmonary edema. She was initially given 60 mg IV Lasix, started on a heparin drip and also given sublingual nitro.
She was admitted to the IVU for further care. While on the floor she suffered a cardiac arrest (PEA), was intubated and subsequently was cannulated for VA ECMO. ROSC was obtained prior to being started on ECMO however due to a slowly decreasing
end-tidal CO2 with faint pulse, CPR was continued for the entirety until she was placed on pump (ECMO pump started at 950AM). She then went to the [facility] where she was found to have aortic insufficiency and clean coronaries (official left heart
cath report still pending). Patient was transferred back to the CVICU for further care, and she is pending transfer to [facility] for further management. Advisory Application Developer services consulted for additional recommendations.
When I saw the patient this morning, she was in cardiac arrest (see my separate update note). After ROSC obtained and after she was cannulated she was brought to the [facility] and then I saw her again in the CVICU. Patient is currently on VA ECMO
with flow at 1.6 L/min with 5200 RPM. Heart rate 42, BP via right radial A-line: 113/81, saturating 100% on CMV/VC at 14/500/40%/5, with PIP: 25 cm water, breathing at 15 breaths/min with VTe 426 mL. She is currently on dobutamine at 5 mcg/kg/min
+ fentanyl at 50mcg/hr. Also on bicarb drip (sterile water) at 100 cc/h. She is occasionally twitching from her right upper extremity otherwise not following any commands. Her boyfriend, Byron, is at bedside and all questions were answered.
PMHx: Hx of bicuspid AV, aortic stenosis s/p tissue AVR, Hx of hemorrhagic CVA, hypertension, generalized anxiety disorder, GERD, nephrolithiasis, former tobacco smoker (quit 2011), history of asthma, fibromyalgia
PSHx: Bovine AVR, arch repair, atrial clip, T&A, lithotripsies, right knee arthroscopy
Past Medical History
Past Medical History: Other (Above as per HPI)
Past Surgical History: Other (Above as per HPI)
Social History
Tobacco: Former Smoker (Approximate 26-[id number]-[id number] history, quit smoking in 2011 with off-and-on use prior)
Alcohol: Occasional
Drug: Former User
Personal: Partner
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
Family History
Family History: Reviewed & Not Pertinent
Allergies / Home Medications
Allergies
Allergy/AdvReac Type Severity Reaction Status Date / Time
No Known Allergies Allergy Unverified 01/17/24 04:26
Home Medications
�Medication �Instructions �Recorded �Confirmed �Last Taken �Type
aspirin 81 mg chewable tablet 81 mg PO DAILY 01/17/24 01/17/24 Unknown History
atorvastatin 20 mg tablet 20 mg PO DAILY 01/17/24 01/17/24 Unknown History
duloxetine 1 PO DAILY 01/17/24 Unknown History
metoprolol tartrate 25 mg tablet 25 mg PO BID 01/17/24 01/17/24 Unknown History
montelukast 10 mg tablet 10 mg PO DAILY 01/17/24 01/17/24 Unknown History
(Singulair)
olmesartan 20 1 tab PO DAILY 01/17/24 01/17/24 Unknown History
mg-hydrochlorothiazide 12.5 mg
tablet (Benicar HCT)
omeprazole 20 mg capsule,delayed 20 mg PO DAILY 01/17/24 01/17/24 Unknown History
release
Review of Systems
-
Unable to Obtain full review of systems at this time due to: Patient Intubation
Vitals / Labs / Diagnostic Testing
Vital Signs
Temp Pulse Resp BP Pulse Ox
98.4 F 116 20 178/108 97
01/17/24 05:47 01/17/24 07:15 01/17/24 05:47 01/17/24 05:50 01/17/24 05:47
Lab Data
01/17/24 12:09
Laboratory Results
01/17/24 01/17/24 01/17/24
02:47 09:58 10:20
PT 17.0 H
INR 1.40
APTT 26.9
pH 7.33 L
pCO2 32
pO2 353 H
HCO3 16.9 L
O2 Delivery Level
Diagnostic Testing:
Physical Exam
-
HEENT: Normocephalic, Anicteric, Other (ETT in place) and Other (PA-catheter in place in R-IJ)
Cardiovascular: S1/S2, Peripheral Edema (negative) and Other (Bradycardic)
Respiratory: Wheeze (negative), Rhonchi (negative), Non-Labored Respirations and Other (Mechanical breath sounds heard bilaterally)
GI: Soft, Non Distended, Non Tender and Normal Bowel Sounds
Neurology: Tremors (Occasional tremors seen in right upper extremity) and Other (Sedated)
Skin: Dry, Other (cool) and Other (ECMO cannulation catheters in place in bilateral groins)
General: Respiratory Distress (negative), Chills (negative) and Sweats (negative)
Assessment
-
Assessment: 63-year-old female former tobacco smoker ([id number], quit 2011) with a past medical history of aortic stenosis with history of bicuspid aortic valve s/p tissue AVR, history of hemorrhagic CVA, JOSUÉ + hypertension who presented with
SOB + chest pain. She initially thought that it was her asthma and she took her inhaler multiple times with no improvement. She is been short of breath with activity for the last 3 to 4 weeks. She also developed tingling in her left arm, left jaw
and left chest over the last several days. Initial EKG showed sinus tachycardia with left bundle branch block with negative Sgarbossa criteria. Initial vitals showed she was afebrile to 97.7 �F, tachycardic to 115, breathing at 24 breaths/min, BP
186/106 and saturating 96%. Initial labs showed troponin 0.097, proBNP 5540, Hb 12.2 and glucose 113. Initial CXR showed mild�moderate pulmonary edema. She was initially given 60 mg IV Lasix, started on a heparin drip and also given sublingual
nitro. She was admitted to the IVU for further care. While on the floor she suffered a cardiac arrest (PEA), was intubated and subsequently was cannulated for VA ECMO. ROSC was obtained prior to being started on ECMO however due to a slowly
decreasing end-tidal CO2 with faint pulse, CPR was continued for the entirety until she was placed on pump (ECMO pump started at 950AM). She then went to the [facility] where she was found to have aortic insufficiency and clean coronaries (official
left heart cath report still pending). Patient was transferred back to the CVICU for further care, and she is pending transfer to [facility] for further management. Advisory Application Developer services consulted for additional recommendations.
Chronic conditions BUSINESS SUPERVISOR: Hx of bicuspid AV, aortic stenosis s/p tissue AVR, Hx of hemorrhagic CVA, hypertension, generalized anxiety disorder, GERD, nephrolithiasis, former tobacco smoker (quit 2011), history of asthma, fibromyalgia
Impression:
#In-hospital cardiac arrest (PEA) now on VA ECMO (cannulated at bedside during code on 01/17/2024)
#NSTEMI
#Severe aortic insufficiency seen on DAK[place]
#Lactic acidosis likely due to prolonged cardiac arrest
#Acute anemia
#Acute thrombocytopenia
#Hypokalemia
#Hyperglycemia (A1c: 5.4 on 01/17/2024) - likely stress induced
#Hyperchloremic, hypernatremia
#Transaminitis likely due to ischemia
#Elevated troponin due to NSTEMI also acutely elevated in the setting of recent left heart cath
#Ventilator dependent respiratory failure
#History of asthma
#History of s/p tissue AVR (with Hx of bicuspid AV)
#History of hemorrhagic CVA
#CAD
#JOSUÉ
#GERD
#Former tobacco smoker (quit 2011 with 01-[id number] history)
Plan:
Continue with VA ECMO, monitoring flow and with serial blood gas with adjustment of sweep if needed
Monitor MAP and DBP, keeping MAP>65, DBP>60
Trend lactate level until <2mmol/L
Ventilator settings reviewed
FiO2 will be weaned to maintain SpO2 >90-94%, pO2>60mmHg
Minute ventilation will be adjusted to optimize pH
Last blood gas showed pH>7.4, no need for bicarb gtt --> stop this now
prn nebulized bronchodilators
Patient not currently bronchospastic with FiO2 at 40%, hence no need for systemic steroids at this time; however given her history of asthma, if FiO2 requirements increase or if she begins to wheeze then would start Solu-Medrol at that time
Given that she had a cardiac arrest with no ability to assess mental status post-code, would limit sedation if possible and see if she awakens and follows commands
Risks > benefits to start hypothermia protocol given her hypotension on VA ECMO, hence will do targeted temperature management to avoid fever
If she is too agitated or unstable to wean off sedation, then would avoid fever at all costs for at least 24 hrs with a core temperature sensing probe (which is in place through the swan)
Can also use ATC acetaminophen
Re-check echo now that she is s/p ROSC
CT surgery managing ECMO circuit
DC lasix since she is now requiring volume since back from director of labor relations
Pulmonary artery catheter parameters will be followed
Pressors/antihypertensive/inotropes/diuretics will be provided as needed
Maintain MAP>65
Replete electrolytes with K>4, Mg>2
Monitor hemoglobin
Monitor platelet count and coags
Transfuse blood products as needed to maintain Hb>7g/dL, plt>50k (given post-operative status)
Start Abx with Unasyn given high risk of aspiration during cardiac arrest this AM
Check sputum culture/blood Cx
Monitor blood sugar to maintain euglycemia with goal BG 140-180
Insulin drip (glycemic protocol) to maintain BG at goal as above
Trend LFTs
Trend troponin until begins to downtrend
Aspiration precautions
VAP prevention protocol
PPI while on vent and on pressors/inotropes
DVT prophylaxis - on heparin gtt
Early nutrition
Full Code
Guarded prognosis - awaiting transfer to tertiary care center at [facility] for further management.
Critical care statement: A total of 65 minutes of critical care time was provided for this patient today. This includes management of ventilator, spontaneous breathing trial, arterial blood gases, pressors, of unstable vital signs, evaluation of the
patient at bedside, reviewing the patient's pertinent medical records including radiographs, microbiology, laboratory evaluations, and discussion with primary team and critical care nursing.
[2024-01-17 12:39] LABS: Platelet Count 172 10^3/uL (130-400)
[2024-01-17 12:42] LABS: ALT (SGPT) 378 U/L (0-35); AST (SGOT) 715 U/L (14-36); Albumin 2.4 g/dl (3.5-5.0); Alkaline Phosphatase 106 U/L (38-126); Blood Urea Nitrogen 15 mg/dl (7-17); Carbon Dioxide 19 mmol/L (22-30); Chloride 113 mmol/L (98-107); Glucose 286 mg/dl (70-99); Magnesium 1.8 mg/dl (1.6-2.3); Potassium 3.1 mmol/L (3.5-5.1); Sodium 143 mmol/L (135-145); Total Bilirubin 0.7 mg/dl (0.2-1.3); Total Protein 4.5 g/dl (6.3-8.2); eGFR > 60.00
[2024-01-17 13:02] LABS: B.E. -8.1 mmol/L; HCO3 16.9 mmol/L (21-28); O2 Saturation % 99.9 % (94-98); PCO2 32 mmHg (32-35); PO2 353 mmHg (83-108); pH 7.33 (7.35-7.45)
[2024-01-17 13:04] LABS: Ionized Calcium 1.48 mMOL/L (1.15-1.33); Potassium 3.7 mMOL/L (3.5-5.1); Sodium 140 mMOL/L (136-145)
[2024-01-17 13:16] LABS: B.E. - POC -7.3 mmol/L; Glucose - POC 308 mg/dl (70-99); HCO3 - POC 15 mmol/L (21-29); Hematocrit - POC 27 % PCV (37-47); Hemodilution- POC Yes; Hemoglobin Calculated - POC 9.1; Ionized Calcium - POC 1.11 mmol/L (1.12-1.27); O2 Saturation %Calculated-POC 99.8 % (92-96); PCO2 - POC 19 mmHg (35-45); PO2 - POC 185 mmHg (80-100); Potassium - POC 3.4 mmol/L (3.6-5.0); Sodium - POC 147 mmol/L (135-145)
[2024-01-17 13:29] LABS: Hemoglobin 9.3 g/dL (12.0-16.0); Mean Corp Hgb Conc. 34.4 g/dL (33.0-37.0); Mean Corpuscular Hgb 34.2 pg (27.0-31.0); Mean Corpuscular Volume 99.3 fL (81.0-99.0); Mean Platelet Volume 9.2 fL (7.4-10.4); Red Blood Cell Count 2.72 10^6/uL (4.20-5.40); Red Cell Dist. Width 12.6 % (11.5-14.5); White Blood Cell Count 8.6 10^3/uL (4.8-10.8)
--- NOTE | 2024-01-17 15:00 | PTCARENOTE ---
Pt received from cathode ray tube salvage processor intubated and sedated. ECMO in place and managed by perfusion. Pt intubated with 8.0 ETT 24cm at the lip. Sedated on fentanyl gtt. Left pupil 5mm nonreactive, right pupil 4mm nonreactive. CT DAMASCENER notified and aware. No
purposeful movement noted. POX 100% AC 14 500 5 40%. Pt intermittently breathing over the vent. Lungs coarse throughout. SB with rates in the 40s. BP supported with ecmo, dobutamine, epi, and levo. Bilateral radial and DP pulses palpable via
doppler. No edema noted. Unable to obtain PA, CVP, and CI/CO, Dr. Cheney at bedside and aware. Abdomen soft, round, hypo BS. Higgins catheter intact draining well above adequate amounts of colorless clear urine. Right radial cath site with TR band in
place, taking air out per protocol. Abrasion noted to center chest, JOHN, no drainage. Right IJ 6 swedish sheath with meds. Right IJ 8.5 cordis with swan floated to 48cm. Right radial tono proximal to TR band with appropriate waveform. All lines
flushed, leveled, zeroed. Right venous ecmo cannula intact. Left femoral ecmo cannula intact. Left SFA sheath intact. Left venous sheath intact infusing fluids & meds. Left AC 20g PIV intact infusing meds. See worklist for all med titrations. See
MAR for medication administration. Pt's significant other at bedside and updated.
--- NOTE | 2024-01-17 15:06 | CONSULT.CT ---
Addendum entered and electronically signed by Luis Felipe Hatfield MD 01/17/24 15:44:
I saw and examined the patient.
The PA's note was reviewed and I agree with the note.
Comment:
PROCEDURE NOTE:
Called emergently to patient's bedside during active CPR. There was some question as to the length of the patient's downtime as this was a unwitnessed arrest. However, maximum downtime was found to be approximately 30 minutes at the most, but felt
to be significantly shorter. Upon identification of her code, high-quality CPR was instituted immediately. The patient had ACLS and had brief ROSC. Given the brief ROSC, it was felt that her downtime was significantly shorter than initially
anticipated. This coupled with her young age warranted ECMO-CPR institution. Her right common femoral vein was accessed with ultrasound guidance and the Seldinger technique. A wire was advanced into the right iliofemoral venous system into the
IVC without any resistance. Her left common femoral artery was sequentially accessed again with ultrasound guidance and the Seldinger technique. And wire access was established into this vessel. The ECMO circuit was primed and the arterial and
venous lines were brought onto the field. We administered 10,000 units of intravenous heparin. Attention was first paid to venous side cannulation. We serially dilated the right common femoral venous access site and advanced a long 25 Mongolian
venous cannula over the wire without issue. We then turned our attention to the left common femoral artery. This was serially dilated. We then advanced a 17 Mongolian arterial cannula into her left common femoral artery. It was advanced without
issue. We removed the long 25 Mongolian venous cannula dilator and connected this cannula to the venous side of the ECMO circuit with great care taken the sure that all air had been removed. We then connected the arterial line in identical fashion to
the arterial limb of the ECMO circuit. All clamps were removed and we attempted to institute ECMO support. Despite an open circuit, there was no significant drainage obtained. I briefly disconnected the venous line and backbled this cannula and
backbled quite freely. We then reconnected and instituted ECMO. This time we are able to achieve appropriate flows in the mid 3.5 L/min range. Both the arterial and venous cannula were secured in place with multiple sutures and sterile dressings
were placed on the groin sites. Arrangements were made to take the patient emergently to the cardiac catheterization laboratory for investigation as to the causative nature behind her arrest.
Thank you.
Luis Felipe Hatfield MD
Original Note:
Patient History
Physicians
Family Physician: Consuelo Cole
Outpatient Cloth Finishing Range Tender: known to Dr. Parsons at [facility], formerly known to Dr. Jacobs
Inpatient Cloth Finishing Range Tender: Dr. Thomas
History of Present Illness
63-year-old female with hemorrhagic CVA in 2007, left bundle branch block, bicuspid aortic valve status post aortic valve replacement (2020), hypertension, dyslipidemia, and anxiety who presented to the emergency department with shortness of breath.
She had been feeling shortness of breath for approximately 2 hours before presenting to the ER yesterday evening. She also had some chest discomfort and a 'funny' feeling in her left jaw. She had significant fatigue over the past several weeks.
By the time WOOL SPOTTER saw her at 8:34 AM, her symptoms had completely resolved and she was on a nitroglycerin and heparin drip. She had received IV furosemide overnight and reported an improvement in her shortness of breath. Her troponin was 0.126 and
continuing to be trended. Her ECG showed sinus tachycardia with a left bundle branch block that was old per the patient. Of note she also had a reportedly normal left heart catheterization in 2020 prior to her valve surgery but we do not have
these records.
At 9:10 AM, her RN noted that she was off the monitor and went into check on her. At that point she found her unresponsive. CPR was started immediately. See code sheet for full medication administration and details. In summary, she received
several rounds of epinephrine. She was shocked twice at 300 J for ventricular fibrillation. The remainder of the rhythm checks revealed PEA. She was ultimately started on an epinephrine drip at 10. She was given calcium, bicarbonate, and
magnesium. ROSC was achieved at some point but then lost again and the decision was made to place patient on ECMO. She was placed on the VA ECMO circuit by Dr. Hatfield. She was cannulated by a 25fr venous in the right femoral vein and a 17fr
arterial in the left SFA. Subsequently, she was taken to the laborer ammunition assembly were a right and left heart cath was preformed. A DPC was added to the LLE. She was accepted by Dr. Zeenat richards at [facility].
Past Medical History
Past Medical History: Other
Aortic Stenosis / Dilated Aortic Arch / Bicuspid Aortic Valve
Hemorrhagic CVA (2007 - ? substance abuse related)
Hypertension
Generalized Anxiety
GERD
Nephrolithiasis
Past Surgical History
Past Surgical History: Other
Dental History
Bovine AVR / Arch Repair / AtriClip
T&A
Lithotripsies
Right Knee Arthroscopy
Family History
Mother: N/A
Father: N/A
Family Medical History: Unable to Obtain
Social History
Alcohol: Occasional
Drug: Cocaine
Tobacco: Former Smoker
Personal: Partner
Living: With Spouse
Allergies
Allergy/AdvReac Type Severity Reaction Status Date / Time
No Known Allergies Allergy Unverified 01/17/24 04:26
Home Medications
�Medication �Instructions �Recorded �Confirmed �Type
aspirin 81 mg chewable tablet 81 mg PO DAILY 01/17/24 01/17/24 History
atorvastatin 20 mg tablet 20 mg PO DAILY 01/17/24 01/17/24 History
duloxetine 1 PO DAILY 01/17/24 History
metoprolol tartrate 25 mg tablet 25 mg PO BID 01/17/24 01/17/24 History
montelukast 10 mg tablet 10 mg PO DAILY 01/17/24 01/17/24 History
(Singulair)
olmesartan 20 1 tab PO DAILY 01/17/24 01/17/24 History
mg-hydrochlorothiazide 12.5 mg
tablet (Benicar HCT)
omeprazole 20 mg capsule,delayed 20 mg PO DAILY 01/17/24 01/17/24 History
release
Review of Systems
-
Unable to obtain full review of systems at this time due to: Acuity and Patient Intubation
History Source: Coordinating Provider
Physical Exam
Vital Signs
Temp 98.4 F 01/17/24 05:47
Temp route: Oral 01/17/24 05:47
Pulse 53 01/17/24 10:19
Rhythm: Sinus tachycardia 01/17/24 06:43
With- Bundle Branch Block Confi 01/17/24 06:43
Resp Rate 20 01/17/24 05:47
Blood pressure 157/125 01/17/24 10:19
Blood pressure extremity used: Right upper arm 01/17/24 05:47
Position: Sitting 01/17/24 05:47
MAP (cuff-Nikunj Monitor) 134 01/17/24 10:19
SaO2 97 01/17/24 05:47
Oxygen Mode of Delivery Room air 01/17/24 05:47
Can the patient verbally communicate their pain? Yes 01/17/24 06:43
Pain scale ratin 01/17/24 02:43
Actual Weight 67.5 kg 01/17/24 05:58
etC02 value 9 01/17/24 10:00
Labs
PT 17.0 Sec (11.4-14.6) H 01/17/24 09:58
APTT 26.9 Sec (23.4-35.0) 01/17/24 02:47
Hemoglobin A1c 5.4 % (4.0-5.6) 01/17/24 01:21
Troponin I 5.370 ng/ml H* D 01/17/24 10:48
Oml-K-Mqxkugutrqt Pept 5540 pg/ml 01/17/24 01:21
Arterial Blood Gases
pH 7.33 (7.35-7.45) L 01/17/24 10:20
pH Cancelled 01/17/24 10:20
pCO2 32 mmHg (32-35) 01/17/24 10:20
pCO2 Cancelled 01/17/24 10:20
pO2 353 mmHg (83-108) H 01/17/24 10:20
pO2 Cancelled 01/17/24 10:20
HCO3 16.9 mmol/L (21-28) L 01/17/24 10:20
HCO3 Cancelled 01/17/24 10:20
Base Excess -8.1 mmol/L 01/17/24 10:20
Base Excess Cancelled 01/17/24 10:20
ABG O2 Sat (Measured) 99.9 % (94-98) H 01/17/24 10:20
ABG O2 Sat (Measured) Cancelled 01/17/24 10:20
Sodium 140 mMOL/L (136-145) 01/17/24 10:20
Potassium 3.7 mMOL/L (3.5-5.1) 01/17/24 10:20
O2 Delivery Level 01/17/24 10:20
O2 Delivery Level Cancelled 01/17/24 10:20
Exam
General: Intubated
Respiratory: Clear
Cardiac: S1/S2
GI: Soft and Non Tender
Rectal: Deferred by Provider
Skin: Other (cool)
Extremities: Lower Level Cyanosis
Lymph: No Lymphadenopathy
Psych: Other (intubated)
Assessment / Plan
-
63 y/o female with PMHx listed above presented to with vague chest pain symptoms. She was subsequently found down in the room and pulseless. CPR was started and had intermittent ROSC. The decision was made to cannulate the patient.
#Cardiogenic shock
- VA ECMO in place; family was updated.
- LLE DPC added by Dr. Cheney
- transfer to tertiary center ([facility]) for the remainder of her care.
- Will continue to check ACT and frequent ABGs
[2024-01-17 15:21] LABS: B.E. - POC 3.4 mmol/L; Glucose - POC 315 mg/dl (70-99); HCO3 - POC 28 mmol/L (21-29); Hematocrit - POC 35 % PCV (37-47); Hemodilution- POC Yes; Ionized Calcium - POC 1.52 mmol/L (1.12-1.27); Lactate - POC 4.52 mmol/L (0.36-0.75); PCO2 - POC 42 mmHg (35-45); PO2 - POC 487 mmHg (80-100); Potassium - POC 2.9 mmol/L (3.6-5.0); Sodium - POC 154 mmol/L (135-145); pH - POC 7.43 (7.35-7.45)
[2024-01-17 15:24] LABS: ACT-LR - POC 224 Seconds (116-155)
[2024-01-17] MEDS: ANCEF 10 IV (15:25)
[2024-01-17] MEDS: KCL 260 MEQ IV (15:26)
[2024-01-17] MEDS: KCL 100 IV ×2 (15:26→17:57)
[2024-01-17] MEDS: SODIUM BICARBONATE 1150 MEQ IV (15:27)
--- NOTE | 2024-01-17 15:30 | PTCARENOTE ---
1L NSS bolus given per VO Dr. Hatfield.
[2024-01-17] MEDS: NOVOLIN R INSULIN INFUSION 100 IV (15:42)
[2024-01-17 15:45] LABS: Hematocrit 34.6 % (37.0-47.0); Hemoglobin 12.3 g/dL (12.0-16.0); Mean Corp Hgb Conc. 35.5 g/dL (33.0-37.0); Mean Corpuscular Hgb 32.5 pg (27.0-31.0); Mean Corpuscular Volume 91.5 fL (81.0-99.0); Mean Platelet Volume 9.2 fL (7.4-10.4); Platelet Count 156 10^3/uL (130-400); Red Blood Cell Count 3.78 10^6/uL (4.20-5.40); Red Cell Dist. Width 14.5 % (11.5-14.5); White Blood Cell Count 7.9 10^3/uL (4.8-10.8)
[2024-01-17] MEDS: NOVOLIN R 8 UNITS IV (15:54)
[2024-01-17 15:55] LABS: Glucose - Point of Care 297 mg/dl (70-99)
[2024-01-17] MEDS: NSS 500 IV (15:58)
[2024-01-17 16:02] LABS: Lactic Acid 4.7 mmol/L (0.7-2.0)
[2024-01-17 16:10] LABS: Triglycerides 58 mg/dl (10-149)
[2024-01-17 16:17] LABS: ALT (SGPT) 501 U/L (0-35); Albumin 3.3 g/dl (3.5-5.0); Alkaline Phosphatase 145 U/L (38-126); Blood Urea Nitrogen 17 mg/dl (7-17); Calcium 11.7 mg/dl (8.4-10.2); Carbon Dioxide 30 mmol/L (22-30); Chloride 111 mmol/L (98-107); Glucose 338 mg/dl (70-99); Sodium 149 mmol/L (135-145); Total Bilirubin 1.1 mg/dl (0.2-1.3); Total Protein 5.7 g/dl (6.3-8.2); eGFR > 60.00
[2024-01-17] MEDS: KEPPRA 1000 MG IV (16:30)
--- NOTE | 2024-01-17 16:30 | PTCARENOTE ---
PTT >200, heparin gtt placed on hold. Perfusion aware. ACT checked q1hr.
--- NOTE | 2024-01-17 16:30 | PTCARENOTE ---
Additional 1L NSS bolus administered per orders.
[2024-01-17 16:36] LABS: APTT > 200 Sec (23.4-35.0)
--- NOTE | 2024-01-17 16:45 | W.PN.UPDATE ---
Update Note
Progress Note Update
Reevaluated the patient at 430 pm in CVICU.
VA ECMO running. Patient's temperature was 84 F
Pupils Mildly reactive
D/W Cardiology earlier.
D/W CTS PA Pt now accepted to [facility]. Transfer at 5 pm
New transfer form signed by significant other.He is calling son who is on his way here .
Will be here in an hour.
D/W Nursing, CT PA at bed side.
If it takes longer pt needs a Head CT. and TTM ( body temp already cold)
[2024-01-17 16:49] LABS: Glucose - Point of Care 249 mg/dl (70-99)
[2024-01-17 16:50] LABS: ACT-LR - POC 215 Seconds (116-155)
--- NOTE | 2024-01-17 16:56 | W.PN.CT.SURG ---
CT Surgery Operative Note
-
Pre-op Diagnosis: Cardiac Arrest - Requiring VA ECMO
Post-op Diagnosis: Drop in flows on VA ECMO
Procedure:
Re-positioning of venous cannula under DAKOTA and Fluoro guidance
Placement of Distal Perfusion Cannula into the Left SFA for reperfusion
FAST assessment with ultrasound
Primary Surgeon: Sampson Cheney MD
Assisting Surgeons: Nelida Glass MD
Specimen: None
Cultures: None
Complications / Blood Loss: 100cc
Findings:
She had an extremely small RA, the ECMO circuit was turned off, the venous line was clamped and disconnected, the introducer was inserted into the 25F venous line and the cnanula was slowly withdrawn on DAKOTA and Fluoro guidance. A wire was passed up
into the SVC verified by both fluoro and DAKOTA and the venous cannula was re-advanced with placement of the top in the SVC. We had better flows there and less suction events. Additional critical care management was performed with several amps of
bicarb given with calcium with subsequently improvement in BPs and hemodynamics. A FAST was performed with no evidence of fluid in the abdomen or chest or pericardium. The Venous line was then secured into place with several sutures.
Sampson Cheney MD, MS
Cardiac Surgeon
[facility]
[2024-01-17 17:02] LABS: AST (SGOT) 973 U/L (14-36)
[2024-01-17] MEDS: D5W 1000 IV (17:31)
[2024-01-17] MEDS: UNASYN IV (17:31)
[2024-01-17] MEDS: NIMBEX 10 MG IV (17:34)
[2024-01-17] MEDS: NSS 1000 IV (17:45)
[2024-01-17 17:57] LABS: Glucose - Point of Care 234 mg/dl (70-99)
--- NOTE | 2024-01-17 17:57 | PTCARENOTE ---
K rechecked, 2.2. Automotive Designer notified. 40meq KCL administered.
[2024-01-17 17:59] LABS: Glucose - POC 239 mg/dl (70-99); HCO3 - POC 21 mmol/L (21-29); Hematocrit - POC 28 % PCV (37-47); Hemodilution- POC Yes; Hemoglobin Calculated - POC 9.6; Ionized Calcium - POC 1.35 mmol/L (1.12-1.27); Lactate - POC 4.48 mmol/L (0.36-0.75); PCO2 - POC 48 mmHg (35-45); PO2 - POC 511 mmHg (80-100); Potassium - POC 2.2 mmol/L (3.6-5.0); Sodium - POC 155 mmol/L (135-145); pH - POC 7.25 (7.35-7.45)
--- NOTE | 2024-01-17 18:00 | PTCARENOTE ---
Pt hyperventilating, Ginner notified. Sedation increased and paralytic given. Unable to obtain TOF prior to administration.
--- NOTE | 2024-01-17 18:04 | ITS.CL.CATH ---
Vehicle Delivery Worker - Catheterization
Cardiac Catheterization
Procedure Report:
LEFT AND RIGHT HEART CATHETERIZATION
Date of Procedure: January 17, 2024
Referring: Mateusz Stallworth
PROCEDURES:
1. Left heart catheterization, coronary angiogram.
2. Right heart catheterization.
3. Placement of Queen-Kim catheter via right IJ access, secured in place.
4. Temporary placement of right IJ temporary transvenous pacemaker, later discontinued as patient's heart rhythm recovered.
5. Placement of distal perfusion cannula with a 6 Austrian sheath in left SFA.
6. Repositioning of ECMO venous cannula with distal tip in the SVC under fluoroscopy and DAKOTA guidance.
7. Placement of arterial line and proximal right radial artery above vascular band.
INDICATION: Recurrent cardiac arrest with concern for cardiogenic shock
ACCESS:
1. Right internal jugular vein, 8.5 Austrian sheath, under ultrasound guidance using a micropuncture kit.
2. Right internal jugular vein, 6 Austrian sheath, under ultrasound guidance using a micropuncture kit.
3. Right radial artery, 6 Austrian sheath, under ultrasound guidance.
4. Proximal right radial artery, arterial line.
5. Left SFA, 6 Austrian sheath, under ultrasound guidance using a micropuncture kit.
6. Left common femoral vein, 8 Austrian sheath, under ultrasound guidance using a micropuncture kit.
HEMODYNAMICS : (mmHg)--on VA ECMO
RA (m) : 15
RV (s/d,m) : 15/10, 12--no RV pulsatility was noted. Later post transthoracic imaging and DAKOTA it was determined that RV was significantly underfilled due to suction from
PA (s/d, m) : 23/--no pulsatility noted on waveform.
PCWP (m) : 18
PA saturation: 98.1% on VA ECMO
AO saturation: 100% on VA ECMO
RA saturation: 76.4% on VA ECMO
LVEDP : 24
CORONARY FINDINGS
DOMINANCE: Right
LEFT MAIN: The left main artery is a large-caliber vessel which gives rise to the left anterior descending artery and the left circumflex artery. Normal coronary artery.
LEFT ANTERIOR DESCENDING: The left anterior descending artery is a medium to large caliber vessel which gives rise to 2 major diagonal branch as it courses through the anterior interventricular groove and wraps around the apex. There is moderate
degree of tortuosity. There is minimal luminal irregularities.
CIRCUMFLEX: The left circumflex artery is a moderately tortuous medium caliber vessel which gives rise to 1 major obtuse marginal branch. There is minimal luminal regularities.
RIGHT CORONARY ARTERY: The right coronary artery is a medium to large caliber, dominant vessel which gives rise to the right posterior descending artery and the right posterolateral system. There is minimal luminal irregularities. There is a
bend/questionable kink in the mid RCA which does not appear to be causing obstruction and flow. Distal vessels have ADELSO-3 flow.
Of note, upon doing right heart catheterization with Queen-Kim catheter, while advancing from RVOT into the pulmonary artery, patient was noted to be in intermittent 2:1 AV block requiring 2 doses of atropine. A second right IJ access was obtained
with 6 Austrian sheath at this point and temporary transvenous pacemaker was placed given acutely there did not appear to be resolution of heart block. However by the end of the case, patient's heart block had resolved and she was conducting
one-to-one in sinus rhythm. To avoid any concerns for RV perforation or injury, decision was made to discontinue the temporary transvenous pacemaker at the end of the case.
RADIATION SUMMARY: Fluoro Time (min): 14.4, Dose (mGy): 391.33, DAP (Gy.cm2) : 31.46
Closure Device:
1. Vascular band over right radial artery, 12 cc of air.
--All the other lines were secured by suturing in place.
CONCLUSIONS
1. No obstructive coronary artery disease.
2. There is a bend/questionable kink in the mid RCA which does not appear to be causing obstruction and flow. Distal vessels have ADELSO-3 flow.
3. Mildly elevated LVEDP.
4. TTE versus DAKOTA to rule out any intracardiac shunting given possible step up with high PA saturation.
Copy to: Mateusz Stallworth
Nelida Glass MD, FACC, [facility]
--- NOTE | 2024-01-17 18:50 | PTCARENOTE ---
1u PRBC infusing per orders.
--- NOTE | 2024-01-17 18:57 | W.PN.UPDATE ---
Update Note
Progress Note Update
Blood consent obtained from son (Durga Driscoll) as there was acute blood loss during ECMO circuit change for transport to [place]. 1 unit PRBC being transfused now. While I was on the phone with Durga I answered all of his questions.
--- NOTE | 2024-01-17 19:20 | PTCARENOTE ---
1800 [place] flight nurses at bedside. Report given and flight nurses now managing pt care. Ecmo circuit switched by perfusion at 1830. Pt left with flight nurses at 1920
--- NOTE | 2024-01-18 17:45 | W.PN.UPDATE ---
Update Note
Progress Note Update
[facility] [id number]
== END 2024-01-17 19:45 | disposition short-term general hospital (02) | DRG 3 ==
LOC: CVICU 04:08
PROVIDERS: Clinical Nurse Specialist Acute Care; Internal Medicine Interventional Cardiology; Nurse Practitioner; Nurse Practitioner Gerontology; Thoracic Surgery (Cardiothoracic Vascular Surgery); ADMITTING PHYSICIAN Hospitalist; ATTENDING PHYSICIAN Hospitalist; CONSULT PHYSICIAN Internal Medicine Critical Care Medicine; CONSULT PHYSICIAN Thoracic Surgery (Cardiothoracic Vascular Surgery); EMERGENCY PHYSICIAN Emergency Medicine; FAMILY PHYSICIAN Family Medicine; OTHER PHYSICIAN Student in an Organized Health Care Education/Training Program
PROC: 0BH17EZ Insertion of Endotracheal Airway into Trachea, Via Natural or Artificial Opening (ICD-10-PCS; 2024-01-17)
PROC: 03HY32Z Insertion of Monitoring Device into Upper Artery, Percutaneous Approach (ICD-10-PCS; 2024-01-17)
PROC: 30233N1 Transfusion of Nonautologous Red Blood Cells into Peripheral Vein, Percutaneous Approach (ICD-10-PCS; 2024-01-17)
PROC: 02PY33Z Removal of Infusion Device from Great Vessel, Percutaneous Approach (ICD-10-PCS; 2024-01-17)
PROC: 5A2204Z Restoration of Cardiac Rhythm, Single (ICD-10-PCS; 2024-01-17)
PROC: 02HV33Z Insertion of Infusion Device into Superior Vena Cava, Percutaneous Approach (ICD-10-PCS; 2024-01-17)
PROC: 5A1935Z Respiratory Ventilation, Less than 24 Consecutive Hours (ICD-10-PCS; 2024-01-17)
PROC: 4A023N8 Measurement of Cardiac Sampling and Pressure, Bilateral, Percutaneous Approach (ICD-10-PCS; 2024-01-17)
PROC: B2111ZZ Fluoroscopy of Multiple Coronary Arteries using Low Osmolar Contrast (ICD-10-PCS; 2024-01-17)
PROC: 5A12012 Performance of Cardiac Output, Single, Manual (ICD-10-PCS; 2024-01-17)
PROC: 5A1522G Extracorporeal Oxygenation, Membrane, Peripheral Veno-arterial (ICD-10-PCS; 2024-01-17)
DX: I11.0 Hypertensive heart disease with heart failure (principal); I21.4 Non-ST elevation (NSTEMI) myocardial infarction; I46.9 Cardiac arrest, cause unspecified; I50.31 Acute diastolic (congestive) heart failure; I49.01 Ventricular fibrillation; R57.0 Cardiogenic shock; J96.90 Respiratory failure, unspecified, unspecified whether with hypoxia or hypercapnia; Z59.01 Sheltered homelessness; E87.20 Acidosis, unspecified; E87.0 Hyperosmolality and hypernatremia; Z99.11 Dependence on respirator [ventilator] status; D62 Acute posthemorrhagic anemia; I25.85 Chronic coronary microvascular dysfunction; F41.1 Generalized anxiety disorder; I44.7 Left bundle-branch block, unspecified; I44.1 Atrioventricular block, second degree; E78.00 Pure hypercholesterolemia, unspecified; R00.0 Tachycardia, unspecified; I77.1 Stricture of artery; D69.6 Thrombocytopenia, unspecified; E87.6 Hypokalemia; R73.9 Hyperglycemia, unspecified; K21.9 Gastro-esophageal reflux disease without esophagitis; J45.909 Unspecified asthma, uncomplicated; E87.8 Other disorders of electrolyte and fluid balance, not elsewhere classified; I08.0 Rheumatic disorders of both mitral and aortic valves; R74.01 Elevation of levels of liver transaminase levels; E66.9 Obesity, unspecified; Z59.86 Financial insecurity; Z56.0 Unemployment, unspecified; Z95.3 Presence of xenogenic heart valve; Z86.73 Personal history of transient ischemic attack (TIA), and cerebral infarction without residual deficits; Z86.79 Personal history of other diseases of the circulatory system; Z87.891 Personal history of nicotine dependence; Z79.82 Long term (current) use of aspirin
CPT/HCPCS: 93308; 36600; 36620; 71045; 71046; 80048; 80053; 80061; 82330; 82805; 82962; 83036; 83605; 83735; 83880; 84132; 84302; 84443; 84478; 84484; 85025; 85027; 85347; 85610; 85730; 86850; 86900; 86901; 86920; 93005; 93321; 93325; 93460; 93503; 94002; 96374; 99285; C1769; C1894; P9016; Q9967